=== PATIENT | male | born 1965 | race Caucasian/White ===

== ENCOUNTER 2017-12-04 22:08 | Emergency (ER) | payer MEDICAID ==
[~2017-12-04] VITALS: Ht 182.9 cm; Wt 99.8 kg
[2017-12-05 02:55] VITALS: BP 139/89
[2017-12-05] MEDS ORDERED: TETANUS-DIPTH-ACEL PERTUSSIS 0.5ML SYRG IM ONE (03:00)
[2017-12-05] MEDS ORDERED: ONDANSETRON HCL 4 MG/2 ML VIAL IV ONE (03:00)
[2017-12-05] MEDS ORDERED: MORPHINE SULFATE 8mg/ml INJ SDV IV ONE (03:00)
[2017-12-05] MEDS ORDERED: CLINDAMYCIN 600MG IV 50 ML IV ONE (03:00)
== END 2017-12-05 04:51 | disposition home or self-care (01) ==
LOC: ER 22:08
DX: S02.609A Fracture of mandible, unspecified, initial encounter for closed fracture (principal); K13.79 Other lesions of oral mucosa; Y08.89XA Assault by other specified means, initial encounter; Y93.89 Activity, other specified; Y92.89 Other specified places as the place of occurrence of the external cause; Y99.8 Other external cause status
CPT/HCPCS: 70486; 90471; 90715; 96365; 96375; 99284; J2270; J2405; J3490; J7040